=== PATIENT | male | born 1960 | race African-American/Black ===

== ENCOUNTER 2019-07-15 12:49 | Emergency (ER) | payer OTHER ==
[2019-07-15] MEDS: LIDOCAINE/MYLANTA 40 ML BTL PO (15:36)
[2019-07-15] MEDS: PANTOPRAZOLE (EC) 40 MG TAB PO (15:36)
== END 2019-07-15 15:57 | disposition home or self-care (01) ==
LOC: E/R 15:57
DX: K25.9 Gastric ulcer, unspecified as acute or chronic, without hemorrhage or perforation (principal); R40.2142 Coma scale, eyes open, spontaneous, at arrival to emergency department; R40.2362 Coma scale, best motor response, obeys commands, at arrival to emergency department; R40.2252 Coma scale, best verbal response, oriented, at arrival to emergency department
CPT/HCPCS: 99283; Z7502